=== PATIENT | female | born 1955 | race Asian ===

== ENCOUNTER 2024-03-08 15:08 | Outpatient (CLI) | payer MEDICARE | END 2024-03-08 15:09 | disposition home or self-care (01) | LOC: BICMAMMO 15:08 | PROVIDERS: ATTEND Physician Assistant | DX: N63.15 Unspecified lump in the right breast, overlapping quadrants (principal); N60.01 Solitary cyst of right breast | CPT/HCPCS: 76642; 77066; G0279 ==